=== PATIENT | female | born 1990 | race African-American/Black ===

== ENCOUNTER 2017-02-07 07:45 | Emergency (ER) | payer MEDICAID ==
[~2017-02-07] VITALS: Ht 152.4 cm; Wt 81.0 kg
[2017-02-07] MEDS ORDERED: SODIUM CHLORIDE 0.9% 1,000ML IVBOLUS ONE (08:00)
[2017-02-07] MEDS ORDERED: MORPHINE SULFATE 4 MG/ML, 1ML IVPush PRN (08:00)
[2017-02-07] MEDS ORDERED: ONDANSETRON 2MG/ML, 2ML IVPush ONE (08:00)
[2017-02-07] MEDS ORDERED: ONDANSETRON 2MG/ML, 2ML ONE (08:07)
[2017-02-07] MEDS ORDERED: MORPHINE SULFATE 4 MG/ML, 1ML ONE (08:07)
[2017-02-07 08:11] LABS: HEMOGLOBIN 13.3 g/dL (11.7-16.4)
[2017-02-07 08:24] LABS: ASPARTATE AMINO TRANSFERASE 13 U/L (15-37); BLOOD UREA NITROGEN 12 mg/dL (7-18)
[2017-02-07 09:55] VITALS: BP 119/59
== END 2017-02-07 09:57 | disposition home or self-care (01) ==
LOC: ED 08:12
DX: N12 Tubulo-interstitial nephritis, not specified as acute or chronic (principal); J45.909 Unspecified asthma, uncomplicated; F17.210 Nicotine dependence, cigarettes, uncomplicated
CPT/HCPCS: 36415; 80053; 81001; 83690; 84703; 85025; 87086; 96361; 96374; 96375; 99285; J2405; J7030

== ENCOUNTER 2017-02-07 20:03 | Emergency (ER) | payer MEDICAID ==
[~2017-02-07] VITALS: Ht 162.6 cm; Wt 88.0 kg
[2017-02-07] MEDS ORDERED: SODIUM CHLORIDE 0.9% 1,000ML IV ONE (20:30)
[2017-02-07] MEDS ORDERED: SODIUM CHLORIDE FLUSH 10ML SYR IVF ONE (20:30)
[2017-02-07] MEDS ORDERED: MORPHINE SULFATE 4 MG/ML, 1ML IVPush PRN (20:30)
[2017-02-07] MEDS ORDERED: ONDANSETRON 2MG/ML, 2ML IVPush ONE (20:30)
[2017-02-07] MEDS ORDERED: MORPHINE SULFATE 4 MG/ML, 1ML ONE (21:30)
[2017-02-07] MEDS ORDERED: ONDANSETRON 2MG/ML, 2ML ONE (21:30)
[2017-02-07 21:41] LABS: PATH.CAST-FLAG NOT PRESENT; SPERM-FLAG NOT PRESENT; SRC-FLAG NOT PRESENT; XTAL-FLAG NOT PRESENT; YLC-FLAG NOT PRESENT
[2017-02-07 21:55] LABS: HEMOGLOBIN 12.2 g/dL (11.7-16.4)
[2017-02-07 22:06] LABS: ASPARTATE AMINO TRANSFERASE 16 U/L (15-37); BLOOD UREA NITROGEN 15 mg/dL (7-18)
[2017-02-07 23:44] VITALS: BP 111/64
== END 2017-02-07 23:46 | disposition home or self-care (01) ==
LOC: ED 23:12
DX: K59.00 Constipation, unspecified (principal); J45.909 Unspecified asthma, uncomplicated; F17.200 Nicotine dependence, unspecified, uncomplicated
CPT/HCPCS: 36415; 74176; 80053; 81001; 85025; 96374; 96375; 99285; J2405; J7030

== ENCOUNTER 2017-02-16 18:39 | Emergency (ER) | payer MEDICAID ==
[~2017-02-16] VITALS: Ht 152.4 cm; Wt 82.1 kg
[2017-02-16] MEDS ORDERED: CEFD300C2 PO (19:34)
[2017-02-16] MEDS ORDERED: HYDROcodone/APAP 5/325 TABLET ONE (19:51)
[2017-02-16] MEDS ORDERED: HYDROcodone/APAP 5/325 TABLET PO ONE (20:00)
[2017-02-16 20:21] LABS: HEMOGLOBIN 12.7 g/dL (11.7-16.4)
[2017-02-16 20:31] LABS: BLOOD UREA NITROGEN 12 mg/dL (7-18)
[2017-02-16 21:06] VITALS: BP 111/60
== END 2017-02-16 21:08 | disposition home or self-care (01) ==
LOC: ED 20:30
DX: M62.830 Muscle spasm of back (principal); M54.5 Low back pain; J45.909 Unspecified asthma, uncomplicated
CPT/HCPCS: 36415; 80048; 81003; 82040; 84703; 85025; 99284

== ENCOUNTER 2017-02-23 19:17 | Emergency (ER) | payer MEDICAID ==
[~2017-02-23] VITALS: Ht 152.4 cm; Wt 81.1 kg
[~2017-02-23 19:17] MED LIST: CEFD300C37 PO
[2017-02-23 19:19] VITALS: BP 125/79
== END 2017-02-23 20:28 | disposition home or self-care (01) ==
LOC: ED 20:20
DX: R21 Rash and other nonspecific skin eruption (principal); J45.909 Unspecified asthma, uncomplicated; Z90.722 Acquired absence of ovaries, bilateral
CPT/HCPCS: 99283

== ENCOUNTER 2017-03-19 19:50 | Emergency (ER) | payer MEDICAID ==
[~2017-03-19] VITALS: Ht 157.5 cm; Wt 80.4 kg
[2017-03-19] MEDS ORDERED: ACETAMINOPHEN 500 MG TABLET ONE (21:17)
[2017-03-19] MEDS ORDERED: ONDANSETRON ODT 8 MG ONE (21:28)
[2017-03-19] MEDS ORDERED: ONDANSETRON ODT 8 MG PO ONE (21:30)
[2017-03-19] MEDS ORDERED: ACETAMINOPHEN 325 MG TABLET PO ONE (21:30)
[2017-03-19] MEDS ORDERED: ALBU0.63 NEB (21:31)
[2017-03-19 21:51] LABS: BLOOD UREA NITROGEN 11 mg/dL (7-18)
[2017-03-19 21:58] LABS: HCG UR OBC PASS
[2017-03-19 22:35] VITALS: BP 110/65
== END 2017-03-19 23:13 | disposition home or self-care (01) ==
LOC: ED 23:07
DX: R10.9 Unspecified abdominal pain (principal); R11.2 Nausea with vomiting, unspecified; J45.909 Unspecified asthma, uncomplicated; Z86.718 Personal history of other venous thrombosis and embolism
CPT/HCPCS: 36415; 71020; 80048; 81003; 81025; 82040; 85025; 85379; 93005; 99285; Q0162

== ENCOUNTER 2017-03-24 01:45 | Emergency (ER) | payer MEDICAID ==
[~2017-03-24] VITALS: Ht 152.4 cm; Wt 80.0 kg
[~2017-03-24 01:45] MED LIST changes: +ALBU0.63 NEB
[2017-03-24] MEDS ORDERED: ONDANSETRON ODT 4 MG PO ONE (02:00)
[2017-03-24] MEDS ORDERED: METOCLOPRAMIDE 5 MG/ML, 2ML IM ONE (02:00)
[2017-03-24] MEDS ORDERED: DICYCLOMINE 10 MG/ML, 2ML IM ONE (02:00)
[2017-03-24] MEDS ORDERED: METOCLOPRAMIDE 5 MG/ML, 2ML ONE (02:16)
[2017-03-24] MEDS ORDERED: ONDANSETRON ODT 4 MG ONE (02:16)
[2017-03-24 02:27] LABS: ASPARTATE AMINO TRANSFERASE 19 U/L (15-37); BLOOD UREA NITROGEN 5 mg/dL (7-18)
[2017-03-24 03:00] VITALS: BP 117/78
== END 2017-03-24 03:02 | disposition home or self-care (01) ==
LOC: ED 01:57
DX: R10.84 Generalized abdominal pain (principal); R11.2 Nausea with vomiting, unspecified; F17.200 Nicotine dependence, unspecified, uncomplicated
CPT/HCPCS: 36415; 80053; 81003; 83690; 84703; 85025; 99284; Q0162

== ENCOUNTER 2017-03-28 14:54 | Emergency (ER) | payer MEDICAID ==
[~2017-03-28] VITALS: Ht 152.4 cm; Wt 79.5 kg
[2017-03-28] MEDS ORDERED: ONDANSETRON 2MG/ML, 2ML ONE (15:28)
[2017-03-28] MEDS ORDERED: SODIUM CHLORIDE FLUSH 10ML SYR IVF ONE (15:30)
[2017-03-28] MEDS ORDERED: SODIUM CHLORIDE 0.9% 1,000ML IVBOLUS ONE (15:30)
[2017-03-28] MEDS ORDERED: ONDANSETRON 2MG/ML, 2ML IVPush ONE (15:30)
[2017-03-28] MEDS ORDERED: MORPHINE SULFATE 4 MG/ML, 1ML ONE (15:50)
[2017-03-28] MEDS ORDERED: MORPHINE SULFATE 4 MG/ML, 1ML IVPush PRN (16:00)
[2017-03-28 16:05] LABS: BLOOD UREA NITROGEN 10 mg/dL (7-18)
[2017-03-28 16:10] LABS: ASPARTATE AMINO TRANSFERASE 15 U/L (15-37)
[2017-03-28 16:54] VITALS: BP 100/55
== END 2017-03-28 16:58 | disposition home or self-care (01) ==
LOC: ED 16:52
DX: R10.84 Generalized abdominal pain (principal)
CPT/HCPCS: 36415; 74020; 80053; 81003; 83690; 84703; 85025; 96361; 96374; 96375; 99285; J2405; J7030

== ENCOUNTER 2017-04-01 16:19 | Emergency (ER) | payer MEDICAID ==
[2017-04-01] MEDS ORDERED: MORPHINE SULFATE 4 MG/ML, 1ML ONE (16:33)
[2017-04-01] MEDS ORDERED: ONDANSETRON 2MG/ML, 2ML ONE (16:34)
[2017-04-01] MEDS ORDERED: KETOROLAC 30 MG/1 ML ONE (16:34)
[2017-04-04 09:57] LABS: HCG UR OBC PASS
[2017-04-04 15:17] LABS: ASPARTATE AMINO TRANSFERASE 33 U/L (15-37); BLOOD UREA NITROGEN 15 mg/dL (7-18)
== END 2017-04-01 18:41 | disposition home or self-care (01) ==
LOC: ED 16:19
DX: S39.012A Strain of muscle, fascia and tendon of lower back, initial encounter (principal); G89.29 Other chronic pain; R10.84 Generalized abdominal pain; X58.XXXA Exposure to other specified factors, initial encounter; Y93.89 Activity, other specified; Y99.8 Other external cause status; Y92.89 Other specified places as the place of occurrence of the external cause
CPT/HCPCS: 36415; 80053; 81003; 81025; 85025; 99284

== ENCOUNTER 2017-04-07 09:29 | Emergency (ER) | payer MEDICAID ==
[~2017-04-07] VITALS: Ht 154.9 cm; Wt 78.0 kg
[2017-04-07] MEDS ORDERED: PHENAZOPYRIDINE 200 MG TABLET ONE (10:30)
[2017-04-07] MEDS ORDERED: PHENAZOPYRIDINE 200 MG TABLET PO ONE (10:30)
[2017-04-07 10:41] LABS: HCG UR OBC PASS
[2017-04-07 10:45] VITALS: BP 102/60
[2017-04-07] MEDS ORDERED: ACETAMINOPHEN 325 MG TABLET PO ONE (11:00)
[2017-04-07] MEDS ORDERED: ONDANSETRON ODT 4 MG PO ONE (11:00)
[2017-04-07] MEDS ORDERED: ONDANSETRON ODT 4 MG ONE (11:02)
[2017-04-07] MEDS ORDERED: ACETAMINOPHEN 325 MG TABLET ONE (11:02)
== END 2017-04-07 12:01 | disposition left against medical advice (07) ==
LOC: ED 10:04
DX: R10.30 Lower abdominal pain, unspecified (principal); I49.1 Atrial premature depolarization; J45.909 Unspecified asthma, uncomplicated; Z90.722 Acquired absence of ovaries, bilateral
CPT/HCPCS: 81003; 81025; 93005; 99285; Q0162

== ENCOUNTER 2017-04-07 12:01 | Emergency (ER) | payer MEDICAID ==
[~2017-04-07] VITALS: Ht 152.4 cm; Wt 80.4 kg
[2017-04-07] MEDS ORDERED: KETOROLAC 30 MG/1 ML ONE (13:45)
[2017-04-07] MEDS ORDERED: KETOROLAC 30 MG/1 ML IM ONE (14:00)
[2017-04-07] MEDS ORDERED: HYDROcodone/APAP 5/325 TABLET PO ONE (14:00)
[2017-04-07] MEDS ORDERED: HYDROcodone/APAP 5/325 TABLET ONE (14:24)
[2017-04-07 14:28] LABS: BLOOD UREA NITROGEN 7 mg/dL (7-18)
[2017-04-07 15:55] VITALS: BP 112/65
== END 2017-04-07 15:58 | disposition home or self-care (01) ==
LOC: ED 14:13
DX: G89.29 Other chronic pain (principal); R10.31 Right lower quadrant pain; J45.909 Unspecified asthma, uncomplicated
CPT/HCPCS: 36415; 74000; 76830; 80048; 82040; 85025; 96372; 99285; J1885

== ENCOUNTER 2017-04-17 17:11 | Emergency (ER) | payer MEDICAID ==
[~2017-04-17] VITALS: Ht 152.4 cm; Wt 78.8 kg
[2017-04-17] MEDS ORDERED: SODIUM CHLORIDE FLUSH 10ML SYR IVF ONE (17:30)
[2017-04-17] MEDS ORDERED: SODIUM CHLORIDE 0.9% 1,000ML IVBOLUS ONE (17:30)
[2017-04-17] MEDS ORDERED: ACETAMINOPHEN 325 MG TABLET PO ONE (18:30)
[2017-04-17] MEDS ORDERED: ACETAMINOPHEN 325 MG TABLET ONE (19:10)
[2017-04-17] MEDS ORDERED: ONDANSETRON ODT 4 MG ONE (19:11)
[2017-04-17 19:16] VITALS: BP 101/54
[2017-04-17 19:58] LABS: HCG UR OBC PASS
[2017-04-17] MEDS ORDERED: ONDANSETRON 4 MG TABLET PO ONE (20:00)
== END 2017-04-17 20:17 | disposition home or self-care (01) ==
LOC: ED 19:20
DX: R10.9 Unspecified abdominal pain (principal); R55 Syncope and collapse; Z88.0 Allergy status to penicillin; Z88.6 Allergy status to analgesic agent; F17.200 Nicotine dependence, unspecified, uncomplicated
CPT/HCPCS: 76830; 81001; 81025; 93005; 99285; Q0162